=== PATIENT | male | born 2000 | race Caucasian/White ===

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

== ENCOUNTER 2023-04-28 03:02 | Outpatient (CLI) | payer OTHER, SELFPAY ==
[2023-04-28 14:13] LABS: ALT 13 U/L (16-63); AST 17 U/L (15-37); Albumin 4.7 g/dL (3.4-5.0); Alkaline Phosphatase 78 U/L (46-116); Anion Gap 7.5 mmol/L (3-11); BUN 29 mg/dL (7-18); Bilirubin, Total 0.7 mg/dL (0.2-1.0); CO2 31.5 mmol/L (21.0-32.0); CREATININE 1.4 mg/dL (0.70-1.30); Calculated LDL 99 mg/dL (<100); Chloride 105 mmol/L (98-107); Cholesterol 159 mg/dL (<200); Estimated GFR 73.33 (mL/min/1.73m2); Glucose 89 mg/dL (74-106); HDL Cholesterol 53 mg/dL (40-60); Potassium 5.4 mmol/L (3.5-5.1); Sodium 144 mmol/L (136-145); Total Protein 7.6 g/dL (6.4-8.2); Triglyceride 35 mg/dL (<150)
[2023-04-28 14:48] LABS: Vitamin D 25 Total 38.6 ng/mL (30-100)
== END 2023-04-28 03:03 | disposition home or self-care (01) ==
LOC: LBO 03:02
PROVIDERS: Visit Provider Advanced Practice Midwife
DX: F90.0 Attention-deficit hyperactivity disorder, predominantly inattentive type (principal); Z83.42 Family history of familial hypercholesterolemia
CPT/HCPCS: 36415; 80053; 80061; 82306

== ENCOUNTER 2024-03-14 10:40 | Outpatient (CLI) | payer OTHER, SELFPAY ==
--- NOTE | 2024-03-14 10:00 | DI.RAD_ITS ---
Exam(s) XR KNEE RT 3V AP,LAT,MARJAN EXAM: XR KNEE RT 3V AP,LAT,MARJAN CLINICAL HISTORY: RIGHT KNEE PAIN. TECHNIQUE: 2D digital imaging was performed of the right knee. Three views obtained. Merchant, and l ateral views were obtained. COMPARISON: No exams were available for comparison FINDINGS: BONES: No acute fracture is present. No bony destructive lesion is seen. JOINTS: The knee is normally aligned. No significant joint effusion is seen. SOFT TISSUE: Normal. IMPRESSION: Unremarkable radiographs of the right knee. DATA REPOSITORY: RADIATION DOSE DELIVERED:
== END 2024-03-14 10:41 | disposition home or self-care (01) ==
LOC: DIORS 10:40
PROVIDERS: Visit Provider Student in an Organized Health Care Education/Training Program
DX: M25.561 Pain in right knee (principal)
CPT/HCPCS: 73562

== ENCOUNTER → 2024-03-29 02:02 | Outpatient (CLI) | payer OTHER, SELFPAY ==
--- NOTE | 2024-03-29 07:00 | DI.MRI_ITS ---
Exam(s) MR LOWER JOINT RT WO EXAM: MR LOWER JOINT RT WO CLINICAL HISTORY: R KNEE PAIN,internal derangement,m23.91. TECHNIQUE: Multiplanar multisequence MRI was performed. COMPARISON: CR XR KNEE RT 3V AP,LAT,MARJAN from 03/14/2024 FINDINGS: BONES: There is no fracture or contusion pattern. For small focal area high signal in the anterior aspect of the lateral femoral condyle without overlying cartilage defect. JOINTS: A minimal joint effusion is present. Articular cartilage: Patellofemoral joint: Articular cartilage is unremarkable. Medial femoral tibial joint: Articular cartilage is unremarkable. Lateral femoral tibial joint: Articular cartilage is unremarkable. LIGAMENTS: Anterior Cruciate: Mild surrounding edema but no focal tear. Posterior Cruciate: Unremarkable. Medial Collateral:Unremarkable. Lateral Collateral ligament complex: Unremarkable. TENDONS: Extensor mechanism: Unremarkable. Medial retinaculum: Unremarkable. Lateral retinaculum: Unremarkable. Popliteus: Unremarkable. MENISCI: The menisci peer diminutive. No focal tears are seen. MUSCLES: Unremarkable. SOFT TISSUES: Artifact from metallic densities bilaterally at the level of the distal femur. The fin dings may be secondary to prior surgery. IMPRESSION: Small area of high signal in the lateral femoral condyle. No overlying cartilage defect. Diminutive appearing menisci without evidence of focal tear. No ligament or tendon tear. DATA REPOSITORY:
== END ==
PROVIDERS: Visit Provider Student in an Organized Health Care Education/Training Program
DX: M25.561 Pain in right knee (principal); M25.461 Effusion, right knee; M23.8X1 Other internal derangements of right knee
CPT/HCPCS: 73721

== ENCOUNTER 2024-04-25 02:00 | Outpatient (CLI) | payer OTHER, SELFPAY ==
--- NOTE | 2024-04-25 12:34 | DI.RAD_ITS ---
Exam(s) XR LUMBAR SPINE COMPLETE EXAM: XR LUMBAR SPINE COMPLETE CLINICAL HISTORY: Midline spinous process discomfort w/low back extension, eval loss of disc. TECHNIQUE: 2D digital imaging was performed of the lumbar spine. Six images were obtained. AP, lat eral, right oblique, left oblique and L5-S1 spot views were obtained. COMPARISON: No exams were available for comparison FINDINGS: BONES: No fracture or destructive lesion. Vertebral bodies are unremarkable. No facet hypertrophy soledad ntified. DISKS: Intervertebral disc spaces are maintained. ALIGNMENT: Lumbar spinal alignment is within normal limits. No spondylolysis or spondylolisthesis. SOFT TISSUE: Normal. IMPRESSION: Unremarkable radiographs of the lumbar spine. DATA REPOSITORY: RADIATION DOSE DELIVERED:
== END 2024-04-25 02:20 ==
LOC: DI 02:00
DX: M54.50 Low back pain, unspecified (principal)
CPT/HCPCS: 72110

== ENCOUNTER 2024-04-25 02:45 | Outpatient (CLI) | payer OTHER, SELFPAY ==
[2024-04-25 12:31] LABS: Abs Immature Grans 0.01 10^3/uL (0.0-0.06); Absolute Basophil Count 0.03 10^3/uL (0.0-0.2); Absolute Eosinophil Count 0.17 10^3/uL (0.0-0.7); Absolute Lymphocyte Count 2.64 10^3/uL (1.2-3.4); Absolute Monocyte Count 0.57 10^3/uL (0.1-0.8); Absolute Neutrophil Count 2.18 10^3/uL (1.2-6.7); Basophils % 0.5 %; Immature Grans % 0.2 %; Lymphocytes % 47.1 %; MCH 31.1 pg (27.0-33.0); MCHC 32.6 % (32.0-36.0); MCV 95 fL (80-95); MPV 9.5 fL (8.0-11.0); Monocytes % 10.2 %; Platelet Count 231 10^3/uL (130-400); RBC 4.82 10^6/uL (4.36-5.78); RDW 12.1 % (11.8-14.1); RDW-SD 42.5 fL
[2024-04-25 12:41] LABS: ESR < 1 mm/hr (0-15)
[2024-04-25 13:36] LABS: BUN 21 mg/dL (7-18); CREATININE 1.3 mg/dL (0.70-1.30); Calcium 9.5 mg/dL (8.5-10.1); Chloride 102 mmol/L (98-107); Estimated GFR 79.66 (mL/min/1.73m2); Glucose 85 mg/dL (74-106); Potassium 4.5 mmol/L (3.5-5.1); Sodium 141 mmol/L (136-145)
[2024-04-25 13:47] LABS: C-Reactive Protein < 0.50 mg/dL (<or=0.5)
[2024-04-25 21:01] LABS: Rheumatoid Factor <8.6 IU/mL (<12.0)
[2024-04-26 10:26] LABS: Cyclic Citrullinated Peptide <2.5 U/mL (<5.0); Lyme Ab w Rflx to Lyme Confirm Negative (Negative)
== END 2024-04-25 02:46 | disposition home or self-care (01) ==
PROVIDERS: Visit Provider Family Medicine
DX: M25.561 Pain in right knee (principal)
CPT/HCPCS: 36415; 80048; 85652; 86200; 85025; 86140; 86431; 86618

== ENCOUNTER 2024-06-26 01:30 | Outpatient (CLI) | payer OTHER, SELFPAY ==
--- NOTE | 2024-06-26 | DI.MRI_ITS ---
Exam(s) MR LUMBAR SPINE WO EXAM: MR LUMBAR SPINE WO CLINICAL HISTORY: RT LUMBAR RADICULOPATHY, M54.16. TECHNIQUE: Multiplanar multisequence MRI of the Lumbar spine was performed. COMPARISON: There are no lumbar spine plain films available at the time of this MRI interpretation FINDINGS: Five lumbar vertebrae are presumed. Conus medullaris is at normal level. There is no evidence of conus mass nor subjacent clumping of in trathecal nerve roots to suggest arachnoiditis. The distal thecal sac appears unremarkable.There is no evidence of Tarlov intrasacral cysts nor other significant findings within the sacral canal Bones:There are no fractures nor ominous osseous lesions in the lumbar vertebral bodies and visualize d sacrum. There are no pars defects. No listhesis. With respect to the individual levels... T12-L1: Unremarkable L1-2: Normal disc height and signal. No disc herniation nor central canal stenosis.No foraminal steno sis L2-3: Normal disc height. No disc herniation nor central canal stenosis.No foraminal stenosis.No face t arthropathy. L3-4: Normal disc height. No disc herniation or central canal stenosis.No foraminal stenosis.No face t arthropathy. L4-5: Normal disc height and signal. No disc herniation nor central canal stenosis. No foraminal st enosis. No significant facet arthropathy. L5-S1: Normal disc height and signal. No disc herniation or central canal stenosis. No foraminal st enosis. No significant facet arthropathy. Soft tissues: paraspinal soft tissues appear unremarkable. IMPRESSION: 1. No significant findings on this MRI of the lumbosacral spine. DATA REPOSITORY:
== END 2024-06-26 01:50 ==
LOC: DI 01:30
PROVIDERS: Visit Provider Physician Assistant
DX: M54.16 Radiculopathy, lumbar region (principal)
CPT/HCPCS: 72148